=== PATIENT | female | born 1940 | race Asian ===

== ENCOUNTER 2018-07-01 10:13 | Emergency (ER) | payer MEDICARE ==
[~2018-07-01] VITALS: Ht 165.1 cm; Wt 65.3 kg
[~2018-07-01 10:13] MED LIST: ATORVASTATIN CA20 MG PO; DIOVAN80 MG PO; METFORMIN HCL850 MG PO; METOPROLOL SUCC50 MG PO
--- OUTSIDE RECORDS SUMMARY | 2018-07-01 10:15 | XMS REPORT | Summary of Care ---
Author Author Kathryn Ruggiero R.N. Organization Unknown Address [facility] Phone Unavailable Care Team Providers Care Backend Java Developer Name Role Phone Kathryn Ruggiero R.N. Unavailable Unavailable TABITHA, KENAN Unavailable Unavailable KENAN CARLOS M.D. 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 Active 90 Tablet Bottle Vitamin D 2000 UNIT Oral Tablet TAKE 1 TABLET DAILY * Refills: 0 Active Cinnamon TABS TAKE 1 TABLET DAILY * Refills: 0 Active Co-Enzyme Q-10 10 MG CAPS TAKE 1 CAPSULE DAILY * Refills: 0 Active Levocetirizine Dihydrochloride 5 MG Oral Tablet TAKE 1 TABLET DAILY. * Refills: 0 Active MetFORMIN HCl ER 500 MG Oral Tablet Extended Release 24 Hour TAKE 2 TABLETS ONCE DAILY WITH THE EVENING MEAL. * Refills: 0 Active Metoprolol Succinate ER 50 MG Oral Tablet Extended Release 24 Hour TAKE 1 TABLET DAILY. * Refills: 0 Active 100 Tablet Bottle [place]-3 1400 MG Oral Capsule TAKE 2 CAPSULE DAILY * Refills: 0 Active Turmeric 500 MG Oral Capsule TAKE 1 CAPSULE DAILY * Refills: 0 Active Valsartan 160 MG Oral Tablet TAKE 1 TABLET DAILY. * Refills: 0 Active Allergies and Adverse Reactions Name Dates Details Ceprotin (Allergy) Status: Active Past Medical History Name Dates Details History of diabetes mellitus (V12.29, Z86.39) Status: Resolved History of hypertension (V12.59, Z86.79) Status: Resolved Procedures Procedure Dates Details Procedures not documented Immunization Name Dates Details Immunizations not documented Family History Name Dates Details No pertinent family history (V49.89, Z78.9) Status: Active Name Dates Details No pertinent family history (V49.89, Z78.9) Status: Active Social History Name Dates Details Unknown if ever smoked Vital Signs Date Test Result Details [id number] BP Systolic 168 mm[Hg] Status: Comments: Location: RUE; Position: Sitting BP Diastolic 80 mm[Hg] Status: Comments: Location: RUE; Position: Sitting Height 65 in Status: Weight 145 lb Status: Body Mass Index Calculated 24.13 kg/m2 Status: Body Surface Area Calculated 1.73 m2 Status: Heart Rate 61 /min Status: Results Date Description Value Details [id number] [place] Pathology Report Comments: [facility] [place] For: Dermatopathology Laboratory Wolfgang Mccoy MD [address], [address] [place] [address] [facility], [facility] [address] CLIA #[id number] [phone] [place] [address] [email or web address] DERMATOPATHOLOGY REPORT Diagnosis:Verruca, skin, L. 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 Bisected. In toto. Microscopic Description:Performed Teaching Physician StatementI have personally review ed the resident's preliminary and all specimen preparation andhave personally issued this report. REPORT Plan of Care Name Dates Details Planned Observations Planned Goals not documented Planned Encounters Appointment; WOLFGANG MCCOY M.D. On: 28-Dec-2018 13:15 Interventions Provided Discussion/Summary* Guideline Used: * Other: None used * Clinic: [facility] * PT returning missed call from clinic staff regarding pathology results. Chart review done, per task note from 01/08/18, informed PT of message from Dr. Mccoy. Verbalized understanding and agreement. * Additional Information: * Add On Task sent to Manjula Deleon Instructions Name Dates Details Instructions not documented Encounters Appointment; KENAN CARLOS M.D. Encounter Diagnosis: Problem not documented On: 05-May-2016 9:30 Appointment; KENAN CARLOS M.D. Encounter Diagnosis: Problem not documented On: 16-Jun-2016 9:30 Appointment; KENAN CARLOS M.D. Encounter Diagnosis: Problem not documented On: 05-Oct-2016 10:45 Appointment; GENET JULIEN M.D. Encounter Diagnosis: Problem not documented On: 24-Oct-2016 11:00 Appointment; KENAN CARLOS M.D. Encounter Diagnosis: Problem not documented On: 03-Nov-2016 9:45 Appointment; KENAN CARLOS M.D. Encounter Diagnosis: Problem not documented On: 22-Dec-2016 9:45 Appointment; KENAN CARLOS M.D. Encounter Diagnosis: Problem not documented On: 05-Jan-2017 10:15 Appointment; KENAN CARLOS M.D. Encounter Diagnosis: Problem not documented On: 23-Feb-2017 10:15 Appointment; KENAN CARLOS M.D. Encounter Diagnosis: Problem not documented On: 25-May-2017 10:15 Appointment; WOLFGANG MCCOY M.D. Encounter Diagnosis: Problem not documented On: 29-Dec-2017 14:15 Appointment; WOLFGANG MCCOY M.D. Encounter Diagnosis: Problem not documented On: 05-Jan-2018 10:15
--- OUTSIDE RECORDS SUMMARY | 2018-07-01 10:15 | XMS REPORT | Summary of Care ---
Author Author [facility] Address Unknown Phone Unavailable Encounter HQ Encntr_alioz([facility]) [id number] Date(s): 10/11/16 - 11/09/16 [facility] Discharge Disposition: Home or Self Care Attending Physician: Rolo Richardson MD Vital Signs No data available for this section Problem List No data available for this section Allergies, Adverse Reactions, Alerts No data available for this section Medications No data available for this section Results No data available for this section Immunizations No data available for this section Procedures No data available for this section Social History No data available for this section Assessment and Plan No data available for this section
--- OUTSIDE RECORDS SUMMARY | 2018-07-01 10:15 | XMS REPORT | Summary of Care ---
Author Author [facility] Address Unknown Phone Unavailable Encounter HQ Encntr_alioz([facility]) [id number] Date(s): 12/26/16 - 01/24/17 [facility] Discharge Disposition: Home or Self Care Attending [...]
--- OUTSIDE RECORDS SUMMARY | 2018-07-01 10:15 | XMS REPORT | Summary of Care ---
Author Author [facility] Address Unknown Phone Unavailable Encounter Encntr_alioz([facility]) [id number] Date(s): 02/20/17 - 03/21/17 [facility] Discharge Disposition: Home or Self Care [...]
--- OUTSIDE RECORDS SUMMARY | 2018-07-01 10:15 | XMS REPORT | Clinical Summary ---
Author Author [facility] Address Unknown Phone Unavailable Care Team Providers Care Divisional Merchandising Manager Name Role Phone Jian Benitez MD PCP Allergies Comments Active Allergy Reactions Severity Noted Date Ciprofloxacin Rash Low 05/22/2016 Flagyl Metronidazole Hives, Rash Low 02/06/2008 Medications End Date Status Medication Sig Dispensed Refills Start Date Active atorvastatin (LIPITOR) 40 Take 40 mg by 0 MG tablet mouth daily. Active metoprolol (TOPROL-XL) 50 Take 50 mg by 0 MG 24 hr tablet mouth daily. Active losartan (COZAAR) 100 MG Take 100 mg 0 tablet by mouth daily. Active levocetirizine (XYZAL) 5 Take 5 mg by 0 MG tablet mouth every evening. Active multivitamin per tablet Take 1 tablet 0 by mouth daily. Active cholecalciferol (VITAMIN Take 1,000 0 D3) 1,000 unit tablet Units by mouth daily. Active metFORMIN (GLUCOPHAGE-XR) Take 750 mg 0 750 MG 24 hr tablet by mouth daily with breakfast. Active coenzyme Q10 100 mg Take 10 mg by 0 capsule mouth daily. Active cinnamon bark (CINNAMON Take by 0 ORAL) mouth. Active TURMERIC ORAL Take by 0 mouth. Active Problems Not on file Encounters Care Team Description Date Type Specialty Randee Robins MD COLONOSCOPY 05/15/2018 Surgery Kristin Garcia MD 05/15/2018 Anesthesia Event Randee Robins MD 05/15/2018 Hospital Encounter Resource, [facility]readmit Phone 05/04/2018 Hospital Pre-Admission Testing Encounter after 06/30/2017 Social History Date Tobacco Use Types Packs/Day Years Used Former Smoker Smokeless Tobacco: Never Used Comments: quit 06/02/1991 Alcohol Use Drinks/Week oz/Week Comments No Alcohol Habits Answer Date Recorded How often do you have a drink containing alcohol? Never 05/04/2018 How many drinks containing alcohol do you have on Not asked a typical day when you are drinking? How often do you have six or more drinks on one Not asked occasion? Sex Assigned at Date Recorded Not on file Industry Job Start Date Occupation Not on file Not on file Not on file Travel End Travel History Travel Start No recent travel history available. Last Filed Vital Signs Time Taken Vital Sign Reading 05/15/2018 12:30 PM BOTTLE FEEDER Blood Pressure 179/77 05/15/2018 12:30 PM BOTTLE FEEDER Pulse 44 05/15/2018 11:43 AM BOTTLE FEEDER Temperature 36.1 C (97 F) 05/15/2018 12:30 PM BOTTLE FEEDER Respiratory Rate 17 05/15/2018 12:30 PM BOTTLE FEEDER Oxygen Saturation 97% - Inhaled Oxygen - Concentration 05/15/2018 10:43 AM BOTTLE FEEDER Weight 62.1 kg (137 lb) 05/15/2018 10:43 AM BOTTLE FEEDER Height 165.1 cm (5' 5") 05/15/2018 10:43 AM BOTTLE FEEDER Body Mass Index 22.8 Plan of Treatment Not on file Procedures Comments Procedure Name Priority Date/Time Associated Diagnosis REPORT OF PROCEDURE - 05/15/2018 ENDOSCOPY URL 11:48 AM BOTTLE FEEDER COLONOSCOPY 05/15/2018 Screen for colon cancer 11:30 AM BOTTLE FEEDER POCT-GLUCOSE METER Routine 05/15/2018 10:44 AM BOTTLE FEEDER after 06/30/2017 Results * REPORT OF PROCEDURE - ENDOSCOPY URL (05/15/2018 11:48 AM BOTTLE FEEDER) Narrative Performed At * POC-Glucose meter (05/15/2018 10:44 AM BOTTLE FEEDER) POC-Glucose Meter 156 (H)Comment: TESTED AT 70 - 110 mg/dL [facility] [address] [facility] [address] [facility] [address] Specimen Blood Performing Organization Address City/State/Zipcode Phone Number [facility] [address] [place] [address] MEDICAL CENTER after 06/30/2017 Insurance Payer Benefit Subscriber ID Type Phone Address Plan / Group [employer] - MGD CARE HUMANA xxxxxxxxx Transplant CHOICE s [facility]
--- OUTSIDE RECORDS SUMMARY | 2018-07-01 10:15 | XMS REPORT | Summary of Care ---
Author Author [facility] Organization [facility] Address Unknown Phone Unavailable Encounter HQ Encntr_alias([facility]) [id number] Date(s): 12/30/16 - 12/30/16 [facility] [address] [place] [phone] Discharge Disposition: Home or Self Care Attending [...]
--- OUTSIDE RECORDS SUMMARY | 2018-07-01 10:15 | XMS REPORT | Summary of Care ---
Author Author [facility] Address Unknown Phone Unavailable Encounter HQ Encntr_alioz([facility]) [id number] Date(s): 05/10/16 - 06/08/16 [facility] Discharge Disposition: Home or Self Care Attending [...]
--- OUTSIDE RECORDS SUMMARY | 2018-07-01 10:15 | XMS REPORT | Summary of Care ---
Author Author [facility] Address Unknown Phone Unavailable Encounter HQ Encntr_alioz([facility]) [id number] Date(s): 11/15/16 - 12/14/16 [facility] Discharge Disposition: Home or Self Care [...]
--- OUTSIDE RECORDS SUMMARY | 2018-07-01 10:15 | XMS REPORT | Summary of Care ---
Author Author [facility] Address Unknown Phone Unavailable Encounter HQ Encntr_alioz([facility]) [id number] Date(s): 08/08/16 - 09/06/16 [facility] Discharge Disposition: Home or Self Care [...]
--- OUTSIDE RECORDS SUMMARY | 2018-07-01 10:15 | XMS REPORT | Continuity of Care Document ---
Author Author Joni amanda [facility] Address Unknown Phone Unavailable Problems Problem Status Onset Date Classification Date Reported Comments Source CERVICAL RADICULOPATHY Active 10/11/2016 [facility] [place] CERVICAL Active 08/15/2016 [facility] [place] LOWER BACK PAIN Active 01/16/2016 [facility] [place] LOB BACK PAIN Active 01/16/2016 [facility] [place] Medications Medication Details Route Status Patient Instructions Ordering Provider Order Date Source Allergies, Adverse Reactions, Alerts Substance Category Reaction Severity Reaction type Status Date Reported Comments Source Immunizations Immunization Date Given Site Status Last Updated Comments Source Results Order Name Results Value Reference Range Date Interpretation Comments Source Spine cervical wo contrast MRI Spine cervical wo contrast MRI MRI CERVICAL SPINE WITHOUT CONTRAST 12/30/2016 11:32 AM CDT TECHNIQUE: Multiplanar multisequence imaging of the cervical spine was performed without administration of intravenous gadolinium. COMPARISON: No prior exam. FINDINGS: Multilevel disc desiccation is seen. C1-C2: Unremarkable. C2-C3: Mild left facet arthrosis. No central canal or foraminal stenosis. C3-C4: Mild bilateral facet arthrosis. No central canal or foraminal stenosis. C4-C5: Approximately 2 mm posterior osteophytes with mild central canal stenosis and cord indentation. Moderate bilateral foraminal stenosis due to small foraminal osteophytes and mild left facet arthrosis. C5-C6: 2.5 mm posterior osteophytes with mild to moderate central canal stenosis and cord indentation. Severe left and moderate right foraminal stenosis due to foraminal osteophytes and uncovertebral joint arthrosis. C6-C7: Minimal disc bulge with mild central canal stenosis. Severe left and mild right foraminal stenosis due to foraminal osteophytes. C7-T1: Moderate left facet arthrosis and mild right facet arthrosis with mild left foraminal stenosis. No central canal stenosis. T1-T2 3 mm right paracentral inferiorly migrated extrusion with mild central canal stenosis. The cervical cord signal is unremarkable without MRI evidence of myelomalacia. Bilateral thyroid gland enlargement is present. IMPRESSION: 1. Multilevel disc degenerative disease and spondylosis. 2. Several levels of mild to moderate central canal stenosis and corresponding cord indentation, most prominent at C5-C6 level. No MRI evidence of spinal cord myelomalacia. 3. C4-C5 moderate bilateral foraminal stenosis. C5-C6 severe left and moderate right foraminal stenosis. C6-C7 severe left foraminal stenosis. 4. T1-T2 right paracentral disc extrusion with inferior migration noted. 12/30/2016 - - Read by: Elieser Gonzalez MD Dictated Date/time: 12/30/16 14:14 Electronically Signed by: Elieser Gonzalez MD 12/30/16 14:20 FINAL REPORT [facility] Vital Signs Vital Sign Value Date Comments Source Encounters Location Location Details Encounter Type Encounter Number Reason For Visit Attending Provider ADM Date DC Date Status Source [facility] [id number] Rolo Dodd 05/10/2016 06/09/2016 [facility] [id number] Rolo Dodd 07/04/2016 08/03/2016 [facility] [id number] Rolo Dodd 08/08/2016 09/07/2016 [facility] [id number] Rolo Dodd 10/11/2016 11/10/2016 [facility] [id number] Rolo Dodd 11/15/2016 12/15/2016 [facility] [id number] Rolo Dodd 12/26/2016 01/25/2017 [facility] [id number] Rolo Dodd 12/30/2016 12/31/2016 [facility] [id number] Rolo Dodd 02/20/2017 03/22/2017 [facility] Procedures Procedure Code Date Perfomer Comments Source
--- OUTSIDE RECORDS SUMMARY | 2018-07-01 10:15 | XMS REPORT | Summary of Care ---
Author Author [facility] Address Unknown Phone Unavailable Encounter HQ Encntr_alioz([facility]) [id number] Date(s): 07/04/16 - 08/02/16 [facility] Discharge Disposition: Home or Self [...]
--- OUTSIDE RECORDS SUMMARY | 2018-07-01 10:15 | XMS REPORT ---
Author Author [facility] Address Unknown Phone Unavailable Care Team Providers Care Log Deckman Name Role Phone FAISALDILMA PRO Unavailable Unavailable Problems This patient has no known problems. Allergies, Adverse Reactions, Alerts This patient has no known allergies or adverse reactions. Medications This patient has no known medications. Results Test Description Test Time Test Comments Text Results Atomic Results Result Comments POCT-GLUCOSE METER 2018-05-15 10:46:00 POC-GLUCOSE METER (BEJAJA) (test [id number]) 156 mg/dL 70-110 TESTED AT [facility] [address] [facility] [address]
--- NOTE | 2018-07-01 11:29 | Diagnostic Imaging Report ---
Elbow, Complete, left CPT code: 99273 History: Fall Technique: Three views of the left elbow were performed. Findings: Minimally displaced fracture of the radial head. No evidence of dislocation. There is a nondisplaced fracture of the coronoid process of the ulna. Small joint effusion. Distal humerus is intact. IMPRESSION: Minimally displaced fracture of the radial head and nondisplaced fracture of the coronoid process of the ulna. No dislocation. Signed by: Dr. Angeline Rangel MD on 07/01/2018 11:25 AM
[2018-07-01 12:05] VITALS: BP 145/72
== END 2018-07-01 12:06 | disposition home or self-care (01) ==
LOC: FSED 10:13
DX: S52.122A Displaced fracture of head of left radius, initial encounter for closed fracture (principal); S52.045A Nondisplaced fracture of coronoid process of left ulna, initial encounter for closed fracture; W01.0XXA Fall on same level from slipping, tripping and stumbling without subsequent striking against object, initial encounter; Y93.41 Activity, dancing; I10 Essential (primary) hypertension; E11.9 Type 2 diabetes mellitus without complications
CPT/HCPCS: 99283

== ENCOUNTER 2022-08-29 11:24 | Emergency (ER) | payer MEDICARE ==
[~2022-08-29] VITALS: Ht 165.1 cm; Wt 62.9 kg
[2022-08-29] MEDS ORDERED: LEVOTHYROXINE50 MCG PO (13:22)
[2022-08-29] MEDS ORDERED: CARVEDILOL3.125 MG PO (13:22)
[2022-08-29] MEDS ORDERED: IRBESARTAN150 MG PO (13:22)
[2022-08-29] MEDS ORDERED: ANALPRAM HC 2.530 GM PR (14:57)
[2022-08-29 15:09] VITALS: O2SAT 98
== END 2022-08-29 15:09 | disposition home or self-care (01) ==
LOC: FSED 11:38
DX: K62.5 Hemorrhage of anus and rectum (principal); K60.2 Anal fissure, unspecified; K64.4 Residual hemorrhoidal skin tags; E11.65 Type 2 diabetes mellitus with hyperglycemia; E78.5 Hyperlipidemia, unspecified; I10 Essential (primary) hypertension; E03.9 Hypothyroidism, unspecified
CPT/HCPCS: 80053; 81003; 85025; 99284

== ENCOUNTER 2023-02-04 13:23 | Emergency (ER) | payer MEDICARE ==
[~2023-02-04] VITALS: Ht 165.1 cm; Wt 65.8 kg
[~2023-02-04 13:23] MED LIST changes: +ANALPRAM HC 2.530 GM PR; +CARVEDILOL3.125 MG PO; +IRBESARTAN150 MG PO; +LEVOTHYROXINE50 MCG PO
[2023-02-04] MEDS ORDERED: FAMOTIDINE 20 MG/2 ML VIAL IV STA (15:12)
[2023-02-04] MEDS ORDERED: KETOROLAC TROMETHAMINE 30 MG/ML VIAL IV STA (15:12)
[2023-02-04] MEDS ORDERED: SODIUM CHLORIDE 0.9% 1000ML 1,000 ML IV SCH (15:15)
[2023-02-04] MEDS ORDERED: IOPAMIDOL 370 MG/ML 100 ML INFUS..BTL INJ ONE (15:41)
[2023-02-04] MEDS ORDERED: KETOROLAC TROMETHAMINE 30 MG/ML VIAL ONE (16:04)
[2023-02-04] MEDS ORDERED: SODIUM CHLORIDE 0.9% 1000ML 1,000 ML ONE (16:04)
[2023-02-04] MEDS ORDERED: FAMOTIDINE 20 MG/2 ML VIAL IV ONE (16:04)
[2023-02-04] MEDS ORDERED: DICYCLOMINE HCL 20 MG TAB PO ONE (17:15)
[2023-02-04] MEDS ORDERED: PIPERACILLIN/TAZOBACTAM 3.375 GM VIAL ONE (17:26)
[2023-02-04] MEDS ORDERED: CIPRO500 MG PO (17:35)
[2023-02-04] MEDS ORDERED: METRONIDAZOLE500 MG PO (17:37)
[2023-02-04] MEDS ORDERED: DICYCLOMINE HCL20 MG PO (17:37)
[2023-02-04] MEDS ORDERED: ONDANSETRON ODT4 MG PO (17:38)
[2023-02-04] MEDS ORDERED: DICYCLOMINE HCL 20 MG TAB ONE (17:50)
[2023-02-04 17:55] VITALS: O2SAT 99
== END 2023-02-04 18:16 | disposition home or self-care (01) ==
LOC: FSED 13:27
DX: R10.30 Lower abdominal pain, unspecified (principal); K57.32 Diverticulitis of large intestine without perforation or abscess without bleeding; D64.9 Anemia, unspecified; E11.9 Type 2 diabetes mellitus without complications; I10 Essential (primary) hypertension; E78.5 Hyperlipidemia, unspecified
CPT/HCPCS: 74177; 80048; 80076; 81003; 85025; 99284; J1885; J2543; J7030; Q9967

== ENCOUNTER 2025-02-03 11:41 | Emergency (ER) | payer MEDICARE ==
[~2025-02-03] VITALS: Ht 165.1 cm; Wt 58.6 kg
[~2025-02-03 11:41] MED LIST changes: +CIPRO500 MG PO; +DICYCLOMINE HCL20 MG PO; +METRONIDAZOLE500 MG PO; +ONDANSETRON ODT4 MG PO
[2025-02-03 16:20] VITALS: PULSE 56; RESP 17; TEMP 98.3; O2SAT 99
== END 2025-02-03 16:20 | disposition home or self-care (01) ==
LOC: FSED 12:41
DX: S22.42XA Multiple fractures of ribs, left side, initial encounter for closed fracture (principal); J90 Pleural effusion, not elsewhere classified; I71.20 Thoracic aortic aneurysm, without rupture, unspecified; E04.1 Nontoxic single thyroid nodule; V53.6XXA Passenger in pick-up truck or van injured in collision with car, pick-up truck or van in traffic accident, initial encounter; Y92.488 Other paved roadways as the place of occurrence of the external cause; I10 Essential (primary) hypertension; E11.9 Type 2 diabetes mellitus without complications; E78.5 Hyperlipidemia, unspecified; E03.9 Hypothyroidism, unspecified
CPT/HCPCS: 71250; 99283